=== PATIENT | female | born 1960 | race Caucasian/White ===

== ENCOUNTER 2018-04-20 08:25 | Emergency (ER) | payer MEDICARE, MEDICAID ==
[2018-04-20 08:46] VITALS: BP 127/85
[2018-04-20] MEDS ORDERED: diphenhydrAMINE 50 MG Cap PO ONE (09:14)
--- NOTE | 2018-04-20 09:22 | EDM.PDOC ---
ED HPI GENERAL MEDICAL PROBLEM - General Chief Complaint: Allergic Reaction Stated Complaint: ALLERGIC REACTION Time Seen by Provider: 04/20/18 09:10 Source of Information: Reports: Patient History Limitations: Reports: No Limitations - History of Present Illness INITIAL COMMENTS - FREE TEXT/NARRATIVE: This 57 yo female patient reports to the ED with swelling of her chin. The patient believes she is having an allergic reaction to increased nuts in her diet. The patient reports she recently was diagnosed with a protein deficiency and was advised by a dietitian to increase consumption of nuts. The patient reports she has been eating more nuts over the past week. The patient reports she had a similar incident last week in her right foot after eating nuts. The patient denies any difficulties breathing or swallowing. Onset: Today Duration: Constant Location: Reports: Face (chin swelling) Quality: Reports: Ache, Dull Severity: Mild Improves with: Reports: None Worsens with: Reports: None Context: Reports: Other Associated Symptoms: Reports: No Other Symptoms - Related Data Allergies Allergy/AdvReac Type Severity Reaction Status Date / Time orange Allergy Vomiting Verified 04/23/17 16:19 Penicillins Allergy Rash Verified 04/23/17 16:19 venom-honey bee Allergy Anaphylactic Verified 04/23/17 16:19 [bee venom (honey bee)] Shock Home Meds: Home Meds EPINEPHrine [Epipen 2-New] 0.3 mg INJECT ASDIRECTED 11/30/15 [History] Venlafaxine HCl [Venlafaxine ER] 225 mg PO DAILY 11/30/15 [History] traMADol [Ultram] 50 mg PO BEDTIME 11/30/15 [History] Aspirin [Ecotrin] 1 tab PO DAILY 03/27/16 [History] Calcium Polycarbophil [Fiber Tabs] 2 tab PO DAILY 03/27/16 [History] LORazepam 1 tab PO ASDIRECTED PRN 03/27/16 [History] Multivitamin [Multivitamins] 1 tab PO DAILY 03/27/16 [History] Valsartan 1 tab PO DAILY 03/27/16 [History] atorvaSTATin [Lipitor] 1 tab PO DAILY 03/27/16 [History] Pregabalin [Lyrica] 225 mg PO BEDTIME 04/20/18 [History] metFORMIN [Glucophage XR] 500 mg PO DAILY 04/20/18 [History] Past Medical History HEENT History: Reports: Impaired Vision Other HEENT History: right eye has catarct Cardiovascular History: Reports: High Cholesterol, Hypertension Respiratory History: Reports: Sleep Apnea Gastrointestinal History: Reports: GERD Genitourinary History: Reports: None ROLL FINISHER History: Reports: Endometriosis, Other (See Below) Other ROLL FINISHER History: TAHBSO Musculoskeletal History: Reports: Arthritis, Back Pain, Chronic Neurological History: Reports: CVA, Other (See Below) Other Neuro History: Episodes of left sided weakness and numbness Psychiatric History: Reports: Anxiety, Depression Endocrine/Metabolic History: Reports: Diabetes, Type II, Obesity/BMI 30+ Hematologic History: Reports: None Immunologic History: Reports: None Oncologic (Cancer) History: Reports: None Dermatologic History: Reports: None - Infectious Disease History Infectious Disease History: Reports: Chicken Pox, Mononucleosis, Other (See Below) Other Infectious Disease History: mono - Past Surgical History Head Surgeries/Procedures: Reports: None HEENT Surgical History: Reports: Adenoidectomy, Cataract Surgery, Oral Surgery, Tonsillectomy GI Surgical History: Reports: Appendectomy, Hernia, Abdominal, Hernia, Inguinal Female Surgical History: Reports: Breast Reduction, Hysterectomy, Salpingo- Oophorectomy Neurological Surgical History: Reports: Other (See Below) Other Neurological Surgeries/Procedures: spinal fusion Musculoskeletal Surgical History: Reports: Other (See Below) Other Musculoskeletal Surgeries/Procedures:: breast reduction Social & Family History - Family History Family Medical History: Noncontributory - Tobacco Use Smoking Status *Q: Never Smoker - Caffeine Use Caffeine Use: Reports: Coffee, Soda - Recreational Drug Use Recreational Drug Use: No ED ROS ALLERGIC REACTION - Review of Systems Review Of Systems: ROS reveals no pertinent complaints other than HPI. ED EXAM GENERAL NO PERIP PULSE - Physical Exam Exam: See Below Exam Limited By: No Limitations General Appearance: Alert, WD/WN, Mild Distress, Obese Eye Exam: Bilateral Eye: EOMI, Normal Inspection, PERRL Ears: Normal External Exam, Normal Canal, Hearing Grossly Normal, Normal TMs Nose: Normal Inspection, Normal Mucosa, No Blood Throat/Mouth: Normal Inspection, Normal Lips, Normal Teeth, Normal Gums, Normal Oropharynx, Normal Voice, No Airway Compromise Head: Other (chin swelling) Neck: Normal Inspection, Supple, Non-Tender, Full Range of Motion Respiratory/Chest: No Respiratory Distress, Lungs Clear, Normal Breath Sounds, No Accessory Muscle Use, Chest Non-Tender Cardiovascular: Normal Peripheral Pulses, Regular Rate, Rhythm, No Edema, No Gallop, No JVD, No Murmur, No Rub GI/Abdominal: Normal Bowel Sounds, Soft, Non-Tender, No Organomegaly, No Distention, No Abnormal Bruit, No Mass, Other (obese) (Female) Exam: Deferred Rectal (Female) Exam: Deferred Back Exam: Normal Inspection, Full Range of Motion, NT Extremities: Normal Inspection, Normal Range of Motion, Non-Tender, Normal Capillary Refill, No Pedal Edema Neurological: Alert, Oriented, CN II-XII Intact, Normal Cognition, Normal Gait, Normal Reflexes, No Motor/Sensory Deficits Psychiatric: Normal Affect, Normal Mood Skin Exam: Warm, Dry, Intact Lymphatic: No Adenopathy Course - Vital Signs Last Recorded V/S: Last Vital Signs Temp 36.2 C 04/20/18 08:45 Pulse 77 04/20/18 08:45 Resp 16 04/20/18 08:45 BP 127/85 04/20/18 08:45 Pulse Ox 97 04/20/18 08:45 - Orders/Labs/Meds Meds: Medications Discontinued Medications Generic Name Dose Route Start Last Admin Trade Name Freq PRN Reason Stop Dose Admin Diphenhydramine HCl 50 mg 04/20/18 09:14 04/20/18 09:20 Benadryl PO 04/20/18 09:15 50 mg ONETIME ONE Administration Departure - Departure Time of Disposition: 10:01 Disposition: Home, Self-Care 01 Condition: Fair Clinical Impression: Allergic reaction Qualifiers: Encounter type: initial encounter Qualified Code(s): T78.40XA - Allergy, unspecified, initial encounter - Discharge Information *PRESCRIPTION DRUG MONITORING PROGRAM REVIEWED*: Not Applicable *COPY OF PRESCRIPTION DRUG MONITORING REPORT IN PATIENT JORGE: Not Applicable Instructions: Allergies, Adult, [id number] Forms: ED Department Discharge Care Plan Goals: The patient was advised of the examination results during the visit. The patient was given an oral dose of Benadryl (50 mg) while in the ED. The patient was encouraged to continue to take Benadryl (25 mg) every 6 hours for the next 2 days. The patient should avoid eating nuts due to her current reaction. If the patient has any additional symptoms or concerns, the patient should follow- up with her primary care facility or return to the emergency department.
== END 2018-04-20 10:10 | disposition home or self-care (01) ==
LOC: DL.ED 08:25
DX: T78.1XXA Other adverse food reactions, not elsewhere classified, initial encounter (principal); I10 Essential (primary) hypertension; E11.9 Type 2 diabetes mellitus without complications; E66.9 Obesity, unspecified; Z88.0 Allergy status to penicillin; Z91.018 Allergy to other foods; Z91.030 Bee allergy status; Z79.899 Other long term (current) drug therapy; Z79.84 Long term (current) use of oral hypoglycemic drugs
CPT/HCPCS: 99283; Q0163

== ENCOUNTER → 2019-03-20 | Outpatient (CLI) | payer MEDICARE, MEDICAID ==
[2019-03-20 14:48] LABS: ANION GAP 15.1; CHLORIDE,CL 105 mmol/L (101-111); SODIUM,NA 137 mmol/L (135-145)
== END ==
LOC: DL.CLIN 10:25
PROVIDERS: ATTEND Nurse Practitioner
DX: I10 Essential (primary) hypertension (principal); E11.9 Type 2 diabetes mellitus without complications; E78.5 Hyperlipidemia, unspecified
CPT/HCPCS: 36415; 80053; 80061; 81003-QW; 82043; 82570; 83036; 85025